=== PATIENT | female | born 1945 | race Caucasian/White ===

== ENCOUNTER 2019-08-14 15:30 | Outpatient (REF) | payer MEDICARE, MEDICAID, SELFPAY | END 2019-08-14 15:50 | LOC: LBN 15:30 | PROVIDERS: Visit Provider Podiatrist | DX: L02.612 Cutaneous abscess of left foot (principal) | CPT/HCPCS: 87077; 87070; 87186; 87205 ==

== ENCOUNTER 2019-09-15 06:05 | Day surgery (SDC) | payer MEDICARE, MEDICAID, SELFPAY ==
[2019-09-15 06:10] VITALS: BP 150/77; PULSE 74; RESP 18; TEMP 36.8; O2SAT 91
[2019-09-15] MEDS: Lactated Ringers 1,000 ML 80 ML IV (06:50)
[2019-09-15] MEDS: ceFAZolin 1 GM/50 ML BAG IVPB (07:34)
[2019-09-15] MEDS: Lidocaine 1% Multi-Dose 50 ML VIAL (07:40)
[2019-09-15] MEDS: Bupivacaine 0.5% Pres-Free 30 ML VIAL (07:40)
[2019-09-15] MEDS: Dexamethasone 4 MG/ML VIAL (08:11)
--- NOTE | 2019-09-15 08:19 | W.PM.DSUDISC ---
Discharge Plan Disposition Patient Disposition: HOME Condition: Good Discharge Details Attending Provider: Jarret Brooks Primary Care Provider: Unknown,Unknown Home Meds and New Rx's Prescriptions: New hydrocodone-acetaminophen [Vicodin HP] 10-300 mg tablet 1 tab PO Q8H PRN (Reason: post op pain) Qty: 7 RF: 0 ibuprofen 600 mg tablet 600 mg PO Q6H PRN (Reason: post op pain and inflamation) Qty: 30 RF: 0 Continued calcium carbonate [Tums] 200 mg calcium (500 mg) Tablet,Chewable 200 mg PO BID PRNRF: 0 Neosporin (mcy-btv-kbaez) 3.5-400-5,000 bv-ofth-xcky Ointment In Packet 1 applic TOPICAL DAILY RF: 0 Discharge Instructions Stand Alone Forms: Matt Instructions-DSU, Jovanna Dean (DSU) Activity:: Activity as Tolerated Remove Dressings/Wound Care:: Do Not Remove Shower/Bathe:: Cover Diet:: Normal Diet Discharge Orders Discharge Orders: Discharge Order (Routine); Ordered 09/15/19 Ordered By: Jarret Brooks DS: Diagnosis Discharge Diagnosis (1) Hammertoe of left foot: Start date: 09/15/19 Start time: 08:20 Status: Acute Asessment and Plan: surgical repair left 5th hammertoe and partia; left 4th metatarsal resection
[2019-09-15 08:50] VITALS: BP 146/63; PULSE 66; RESP 18; TEMP 36.5; O2SAT 98
--- NOTE | 2019-09-15 10:37 | ROE_ITS ---
DATE OF PROCEDURE: September 15, 2019 PREOPERATIVE DIAGNOSIS: 1. Symptomatic hammertoe deformity of the left fifth digit. 2. Hypertrophic fourth metatarsal head. 3. Recurring abscess, left forefoot. PROCEDURE: 1. Arthroplasty of the left fifth toe. 2. Partial fourth metatarsal head resection. SURGEON: Jarret Brooks D.P.M. ANESTHESIA: IV General Anesthesia with local block of the fourth and fifth rays utilizing 10 cc's of a 50:50 mixture 1% Lidocaine plain, 0.5% Marcaine plain, supplemented by an additional 4 cc's of 1% Lidocaine plain. ANESTHESIA PROVIDER: Tae Castillo CRNA OPERATIVE INDICATIONS: 74-year-old female with pain associated with a left fifth hammertoe and a chr onic, recurring abscess secondary to an ulcerated heloma molle situated between the fourth and fifth toes. She is being brought to the OR for surgical repair of the left fifth hammertoe through an arth roplasty and a partial fourth metatarsal head resection. She understands risks and complications of surgery pertaining to pain, scarring, infection, shortening of the fifth toe, floppiness of the fifth toe, ongoing abscess formation and the potential for additional surgical interventions. Informed co nsent has been obtained. No promises made to the final outcome of surgery. REPORT OF OPERATION: Kaelyn is brought to the operative suite, placed in the supine position, where t he left foot is prepped and draped in the usual sterile podiatric fashion. A time-out was obtained; all members of the surgical team verbalized acknowledgement of the patient, case, etc. Attention was now directed to the left foot, which was exsanguinated. A well-padded ankle tourniquet inflated 250 mmHg. Attention was directed to the left fifth toe where a midline dorsal incision was made over the PIPJ. The incision was deepened in controlled depth fashion. A transverse tenotomy c apsulotomy was performed at the PIPJ level with a #15 scalpel; the collaterals were released, the hea d of the fifth proximal phalangeal head delivered into the wound. With double-action bone-cutting f orceps the head was resected; all rough and bony edges were rasped smooth. No sign of infection or p urulence or anything out of the ordinary was observed at this level. Attention was now directed to the dorsal aspect of the fourth MPJ where a 1 cm incision was placed ov er the dorsal lateral aspect of the joint. The incision was deepened in controlled depth fashion; he mostasis acquired with electrocautery, as needed. Once again there was no purulence, no signs of inf ection. The incision was carried down to the joint capsule. The joint capsule was incised over its dorsal lateral side and the capsule reflected medially and laterally. The fourth metatarsal head was noted to be laterally prominent compared to the base of the proximal phalanx. With power instrument ation the hyperostosis excessive portion of the fourth metatarsal head was resected. I also took a s mall piece of the lateral portion of the base of the proximal phalanx. I felt there was good bone re section. Hand rasp was used and all rough and bony edges rasped smooth. Copious irrigation was perf ormed. Finger palpation revealed sufficient resection of bone. The fourth MPJ was repaired with sim ple interrupted suture #3-0 Vicryl. The subcutaneous layer was repaired with simple interrupted sutu re #3-0 Vicryl and the skin was coapted with a combination of simple and horizontal mattress suture # 4-0 nylon. Same closure to the fifth toe. The joint capsule was closed with #3-0 Vicryl and the ski n was coapted with simple and horizontal mattress suture #4-0 nylon. Four milligrams of dexamethason e phosphate was infused proximally between the fourth and the fifth toes. Xeroform, gauze fluff comp ressions dressings were applied. The tourniquet was released at twenty-six minutes with vascularity returning immediately to all toes. Kaelyn left the OR with vital signs stable, vascular status intact . She will be followed by me in the office next week.
== END 2019-09-15 09:10 | disposition home or self-care (01) ==
PROVIDERS: Visit Provider Podiatrist
PROC: (CPT 28112; principal; 2019-09-15 07:30)
DX: M20.42 Other hammer toe(s) (acquired), left foot (principal); M89.372 Hypertrophy of bone, left ankle and foot; L97.528 Non-pressure chronic ulcer of other part of left foot with other specified severity; L02.612 Cutaneous abscess of left foot; I10 Essential (primary) hypertension
CPT/HCPCS: 28112; 28285; J0690; J1100